=== PATIENT | female | born 1980 | race Two or more races ===

== ENCOUNTER 2023-12-25 11:43 | Emergency (ER) | payer MEDICAID, OTHER ==
[~2023-12-25] VITALS: Ht 157.5 cm; Wt 69.8 kg
[2023-12-25 13:06] VITALS: BP 110/89; PULSE 98; RESP 18; TEMP 98.5; O2SAT 98
[2023-12-25] MEDS: cefTRIAXone SOD 1,000 MG VL IM ONE (13:54)
[2023-12-25] MEDS: methylPREDNISolone SOD SUCC 125 MG/2 ML VL IM ONE (13:54)
[2023-12-25 14:32] LABS: Rapid Strep A Screen-Throat Positive
[2023-12-25] MEDS ORDERED: IBUP-1456 PO (14:42)
[2023-12-25] MEDS ORDERED: PENI500T2 PO (14:42)
[2023-12-25] MEDS ORDERED: LIDO2SOL26 MT (14:42)
[2023-12-25] MEDS ORDERED: IBUPROFEN 800 MG TAB PO ONE (14:45)
== END 2023-12-25 14:46 | disposition home or self-care (01) ==
LOC: ER 11:43
DX: J03.00 Acute streptococcal tonsillitis, unspecified (principal); F17.210 Nicotine dependence, cigarettes, uncomplicated; Z79.899 Other long term (current) drug therapy
CPT/HCPCS: 87880; 96372; 99284; J0696; J2919